=== PATIENT | male | born 1965 | race Caucasian/White ===

== ENCOUNTER 2019-05-16 18:48 | Observation (INO) ==
--- OUTSIDE RECORDS SUMMARY | 2019-05-16 18:50 | External Medical Summary | Continuity of Care Document ---
:1965 Author Name Paula Elliott Address Unavailable Unavailable , Care Team Providers Name Role Phone Melissa Elliott Unavailable [email or web address] [place], [place] PCP, NO Unavailable Unavailable Unavailable Unavailable Unavailable Assessments Assessed Problems:Bilateral inguinal hernia Problems Bilateral inguinal hernia (550.92) (K40.20) Allergies and Adverse Reactions No Known Drug Allergies (Allergy) Medications No Reported Medications Refills: 0 Procedures Procedures not documented Immunizations Immunizations not documented Family History Unknown Family Member Family history of Diabetes Mellitus (V18.0) Status: Active Comments: Family History Family history of Cancer Status: Active Comments: Famil y History Social History - Smoking Status Never smoker Interventions Discussion/SummaryPost-operative inguinal herniorrhaphy. The patient is doing well, no problems reported and the patient is satisfied. We discussed resumption of normal activities/return to work type of issues. Follow up will be prn. Plan of Treatment Planned Observations Planned Goals not documented Results No Known Results Results not documented Encounters Appointment; Dione Torres M.D. 29-Apr-2014 10:20 Encounter Diagnosis: Problem not documented
[2019-05-16] MEDS ORDERED: SODIUM CHLORIDE 0.9% 1000ML 1,000 ML IV ONE (19:11)
[2019-05-16] MEDS ORDERED: ONDANSETRON INJ 2 MG/ML 2 ML VIAL IV STA (19:13)
[2019-05-16] MEDS ORDERED: MoRPHine SULFATE 4 MG/ML 1 ML CARP\\VIAL IV STA (19:13)
[2019-05-16] MEDS ORDERED: DiphenhydrAMINE HCL 50 MG/ML VIAL IV STA (19:15)
[2019-05-16] MEDS ORDERED: ACETAMINOPHEN 1,000 MG/100 ML VIAL IV STA (19:15)
[2019-05-16 19:38] LABS: Basophils # (auto) 0.02 K/uL (0-0.2); Basophils % (auto) 0.3 %; Eosinophils # (auto) 0.41 K/uL (0-0.5); Eosinophils % (auto) 5.5 %; Hematocrit (blood only) 38.4 % (42-52); Hemoglobin 13.1 g/dL (14.0-18.0); Immature Granulocytes # (auto) 0.02 K/uL (0.00-0.02); Immature Granulocytes % (auto) 0.3 %; Lymphocytes # (auto) 2.04 K/uL (1.2-3.4); Lymphocytes % (auto) 27.4 %; Mean Corpuscular Hgb Conc 34.1 g/dL (32-36); Mean Corpuscular Volume 95.5 fL (80-100); Mean Platelet Volume 9.2 fL (7.4-10.4); Monocytes # (auto) 0.95 K/uL (0.11-0.59); Monocytes % (auto) 12.8 %; Neutrophils % (auto) 53.7 %; Platelet Count 210 K/uL (130-400); RDW Coefficient of Variation 12.8 % (11.5-14.5); RDW Standard Deviation 45.1 fL (36.4-46.3); Red Blood Count 4.02 M/uL (4.7-6.1); White Blood Count 7.44 K/uL (4.8-10.8)
--- NOTE | 2019-05-16 19:46 | Emergency Department Note ---
Entered by Autumn Leblanc acting as a scribe for History of Present Illness General Chief complaint: Abdominal Pain Stated complaint: FALLS, ABDOMINAL PAIN- HERNIA Time Seen by Provider: 05/16/19 19:05 Source: patient and family () History of Present Illness Onset (ago): month(s) 1 Location: abdomen (central ) Pain Consistency: + other (worsening ) Maximum Pain Intensity: 7 Current Pain Intensity: 7 Quality: + burning Associated symptoms: + nausea/vomiting (positive nausea; negative vomiting ) and + other (negative urinary symptoms ) Treatments prior to arrival: NSAID (Ibuprofen) The patient is a 54 year old male who presents to the Emergency Room with complaints of worsening central abdominal pain that began about one month prior to arrival. The patient describes this pain as burning, and rates it at a 7/10. The patient states that he previously had a laparoscopic surgery to fix his hernia several years ago, and states that about 3 months ago his hernia came back out. The patient states that his pain began about one month ago, and states that it has been worsening since this time. The patient's states that the patient was seen at [facility] last night where the doctor was able to reduce the hernia. The patient states that before he got home from [facility], the hernia came back out. The patient's states that tonight the patient fell, and states that the patient was unable to get up after the fall due to his pain. The patient states that during this time he has been nauseous, but denies vomiting. He denies urinary symptoms. The patient states that he has been taking Ibuprofen for his symptoms. Home Medications Home Medications Medication Instructions Recorded Confirmed Type diphenhydramine HCl [Benadryl] 25 - 50 mg PO DAILY PRN 05/16/19 05/16/19 History ibuprofen 400 mg PO TID PRN 05/16/19 05/16/19 History multivitamin 1 tab PO DAILY 05/16/19 05/16/19 History tramadol [Ultram] 50 - 100 mg PO Q4H PRN #15 tab 05/17/19 Rx Allergies Allergy/AdvReac Type Severity Reaction Status Date / Time oxycodone [From Percocet] Allergy Rash/itchy Verified 05/16/19 20:20 Past Med/Surg History Medical History Bilateral inguinal hernia (Acute) Bilateral inguinal hernia (Acute) Alcoholism Tobacco abuse Surgical History History of hernia repair Social History Preferred Language: Lao Communication Ability: Effective Costing Manager Required: No Beliefs That Will Affect Care: None Current Living Situation: Spouse and Family Other Information That Helps Us Care for You: No Feels Safe at Home: Yes Safety Concerns: Feels Safe At This Time Smoking Status: Unknown if ever smoked Hx Alcohol Use: Yes Alcohol type: beer Hx Substance Use: No Review of Systems See HPI for pertinent positives & negatives. and A total of 10 systems reviewed and were otherwise negative Physical Exam Vital Signs Vital Signs - 24 hr 05/16/19 19:02 05/16/19 20:02 05/16/19 20:26 Temperature 36.6 C Temperature Source Oral Sepsis Recent Fever Within 48 Hours No Sepsis Action Taken by Nursing No Action Required Pulse Rate 96 H Pulse Rate [Apical] Pulse Rate [Right] 85 80 Pulse Rhythm Regular Pulse Rhythm [Apical] Pulse Strength Normal Respiratory Rate 20 16 16 Respiratory Effort / Characteristics Non-Labored Spontaneous Respiratory Depth Normal Respiratory Pattern Regular Blood Pressure 122/82 Blood Pressure [Left Arm] Blood Pressure [Right Arm] 127/78 132/90 Blood Pressure Mean 95 Blood Pressure Mean [Left Arm] Blood Pressure Mean [Right Arm] 94 104 Blood Pressure Position Sitting Blood Pressure Position [Left Arm] Pulse Oximetry 95 97 96 Oxygen Delivery Method Room Air Room Air Room Air Oxygen Flow Rate 05/16/19 20:39 05/16/19 22:38 Temperature 36.1 C L Temperature Source Temporal Artery Scan Sepsis Recent Fever Within 48 Hours Sepsis Action Taken by Nursing Pulse Rate Pulse Rate [Apical] 101 H Pulse Rate [Right] Pulse Rhythm Pulse Rhythm [Apical] Regular Pulse Strength Respiratory Rate 16 Respiratory Effort / Characteristics Non-Labored Respiratory Depth Normal Respiratory Pattern Regular Blood Pressure Blood Pressure [Left Arm] 143/97 H Blood Pressure [Right Arm] Blood Pressure Mean Blood Pressure Mean [Left Arm] 112 Blood Pressure Mean [Right Arm] Blood Pressure Position Blood Pressure Position [Left Arm] Semi-fowlers Pulse Oximetry 97 Oxygen Delivery Method Room Air Oxymask Oxygen Flow Rate 7 GENERAL: Patient is in no acute distress. HEENT: No acute trauma, normocephalic atraumatic, mucous membranes moist, no nasal congestion, no scleral icterus. NECK: No stridor, no adenopathy, no meningismus, trachea is midline. LUNGS: Clear to auscultation bilaterally, no wheeze, no rhonchi, breath sounds equal. HEART: Without murmurs gallops or rubs, regular rate and rhythm. ABDOMEN: Soft, nontender, bowel sounds positive, no hernias, no peritonitis. GROIN: There is a fairly large, firm, left inguinal hernia that is quite tender to touch and is currently not reducible. EXTREMITIES: No cyanosis or edema, full range of motion of all the joints without pain or difficulty, no signs for acute trauma. NEUROLOGIC: Oriented x 3, no acute motor or sensory deficits, no focal weakness. SKIN: No rash, no jaundice, no diaphoresis. Course 190: Past medical records reviewed. The patient was evaluated in room B5. A complete history and physical exam was performed. 1920: I discussed the case with Dr. Sahu who states that he will come evaluate the patient. 1956: I discussed the case with Dr. Sahu who recommended ordering an ECG and cancelling the CAT scan. 2012: I updated the patient on the treatment plan. He is currently getting an ECG. 2017: I discussed the case with Dr. Sahu who states that he will further evaluate the patient. Consultations Consultation #1: I discussed the case with Dr. Sahu who states that he will come evaluate the patient. Time: 19:21 Consultation #2: I discussed the case with Dr. Sahu who recommended ordering an ECG and cancelling the CAT scan. Time: 19:57 Consultation #3: I discussed the case with Dr. Sahu who states that he will further evaluate the patient. Time: 20:17 Administered Medications Discontinued Medications Bacitracin (Bacitracin) Confirm Administered Dose 50,000 units .ROUTE .STK-MED ONE Stop: 05/16/19 20:40 Last Admin: 05/16/19 23:26 Dose: Not Given Documented by: [id number] Bupivacaine HCl (Marcaine 0.5% Mpf) Confirm Administered Dose 30 ml .ROUTE .STK- MED ONE Stop: 05/16/19 20:39 Last Admin: 05/16/19 21:21 Dose: 9 ml Documented by: [id number] Diphenhydramine HCl (Benadryl) 12.5 mg IV NOW STA Stop: 05/16/19 19:16 Last Admin: 05/16/19 20:04 Dose: 12.5 mg Documented by: [id number] Acetaminophen (Ofirmev) 1,000 mg in 100 mls @ 400 mls/hr IV NOW STA Stop: 05/16/19 19:29 Last Infusion: 05/16/19 20:25 Dose: 0 mls/hr Documented by: [id number] Admin: 05/16/19 20:04 Dose: 400 mls/hr Documented by: [id number] Sodium Chloride (Nss 1000ml) 1,000 mls @ 999 mls/hr IV .Q1H1M ONE Stop: 05/16/19 20:11 Last Infusion: 05/16/19 23:26 Dose: 0 mls/hr Documented by: [id number] Admin: 05/16/19 20:05 Dose: 999 mls/hr Documented by: [id number] Cefazolin Sodium (Ancef 2000mg) 2,000 mg in 15 mls @ 3.75 mls/min IV PREOP ONE Stop: 05/16/19 22:37 Last Admin: 05/16/19 21:12 Dose: 3.75 mls/min Documented by: [id number] Lactated Ringer's (Lr) 1,000 mls @ 50 mls/hr IV .Q20H YUVAL Stop: 06/15/19 23:23 Last Infusion: 05/17/19 08:52 Dose: 0 mls/hr Documented by: [id number] Admin: 05/16/19 23:36 Dose: 50 mls/hr Documented by: [id number] Morphine Sulfate (Morphine Sulfate) 4 mg IV NOW STA Stop: 05/16/19 19:14 Last Admin: 05/16/19 20:04 Dose: 4 mg Documented by: [id number] Ondansetron HCl (Zofran) 4 mg IV NOW STA Stop: 05/16/19 19:14 Last Admin: 05/16/19 20:04 Dose: 4 mg Documented by: [id number] Medical Decision Making Differential Diagnosis Differential diagnoses include incarcerated hernia, strangulated hernia, bowel obstruction, dehydration, diverticulitis, pancreatitis, and others were considered. Medical Records Attestation: I reviewed the patient's medical records. Home Medications Current Medication List: was personally reviewed by me Laboratory Data Attestation: I reviewed the patient's lab results. Result diagrams: 05/16/19 19:28 05/16/19 19:28 Lab Results 05/16/19 05/16/19 05/16/19 Range/Units 19:28 19:28 19:28 WBC 7.44 (4.8-10.8) K/uL RBC 4.02 L (4.7-6.1) M/uL Hgb 13.1 L (14.0-18.0) g/dL Hct 38.4 L (42-52) % MCV 95.5 (80-100) fL MCH 32.6 (25-34) pg MCHC 34.1 (32-36) g/dL RDW Std Deviation 45.1 (36.4-46.3) fL RDW Coeff of Jin 12.8 (11.5-14.5) % Plt Count 210 (130-400) K/uL MPV 9.2 (7.4-10.4) fL Immature Gran % (Auto) 0.3 % Neut % (Auto) 53.7 % Lymph % (Auto) 27.4 % Nicol[place] % (Auto) 12.8 % Eos % (Auto) 5.5 % Baso % (Auto) 0.3 % Immature Gran # (Auto) 0.02 (0.00-0.02) K/uL Neut # (Auto) 4.00 (1.4-6.5) K/uL Lymph # (Auto) 2.04 (1.2-3.4) K/uL [place] # (Auto) 0.95 H (0.11-0.59) K/uL Eos # (Auto) 0.41 (0-0.5) K/uL Baso # (Auto) 0.02 (0-0.2) K/uL PT 10.2 (9.0-12.0) Seconds INR 1.0 (0.9-1.1) APTT 27.9 (21.0-31.0) Seconds PTT Ratio 1.0 Sodium 137 (136-145) mmol/L Potassium 3.8 (3.5-5.1) mmol/L Chloride 103 (98-107) mmol/L Carbon Dioxide 22 (21-32) mmol/L Anion Gap 12.0 H (3-11) BUN 12 (7-18) mg/dl Creatinine 0.77 (0.6-1.4) mg/dl Est Cr Clr Drug Dosing 102.2 ml/min Est GFR ( Amer) 120.9 Est GFR (Non-Af Amer) 104.3 BUN/Creatinine Ratio 15.0 (10-20) Glucose 93 (70-99) mg/dl Calcium 8.9 (8.5-10.1) mg/dl Total Bilirubin 0.3 (0.2-1) mg/dl AST 20 (15-37) U/L ALT 25 (12-78) U/L Alkaline Phosphatase 90 (45-117) U/L Total Protein 7.3 (6.4-8.2) gm/dl Albumin 3.7 (3.4-5.0) gm/dl Globulin 3.6 (2.5-4.0) gm/dl Albumin/Globulin Ratio 1.0 (0.9-2) ECG Data Attestation: I personally reviewed and interpreted this ECG as follows: Indication: abdominal pain Rate (beats per minute): 87 Rhythm: sinus rhythm Findings: + other (potential old septal infarct ) and + 1st degree AV block; no PVC and no ST elevation Blood Pressure Blood Pressure Findings: Normal blood pressure MDM Narrative There is no leukocytosis or concerning anemia. No coagulopathy. No significant electrolyte abnormality or kidney failure. No elevation to the liver enzymes. EKG showed a sinus rhythm, no acute ischemia. On exam, the patient appeared to have an incarcerated left inguinal hernia. The patient was made n.p.o. He received IV saline for hydration. He was given IV morphine for pain, IV Zofran for nausea. He received IV Tylenol for pain, IV Benadryl to prevent itching from his morphine. I did contact general surgery. They arrived at bedside and have decided to take the patient to the operating room for this incarcerated hernia. Patient is currently resting comfortably. He is aware of all his results. Impression & Plan Incarcerated left inguinal hernia, Left groin pain Discharge Plan Visit Data *Final* Discharge Date/Time: 05/16/19 20:29 Chief Complaint: Abdominal Pain Stated Complaint: FALLS, ABDOMINAL PAIN- HERNIA ED Provider: Cesar Power Discharge Problem: Incarcerated left inguinal hernia, Left groin pain Patient Disposition: Still a Patient Discharge Instructions Interventions: ED Discharge Assessment Last Done: 05/16/19 20:29 The scribe's documentation has been prepared under my direction and personally reviewed by me in its entirety. I confirm that the note above accurately reflects all work, treatment, procedures, and medical decision making performed by me.
[2019-05-16 19:49] LABS: Partial Thromboplastin Time 27.9 Seconds (21.0-31.0); Prothrombin Time 10.2 Seconds (9.0-12.0)
[2019-05-16 19:54] LABS: Albumin Level 3.7 gm/dl (3.4-5.0); Calcium 8.9 mg/dl (8.5-10.1); Creatinine Clr Calc Pharmacy 102.2 ml/min; Est GFR (African American) 120.9; Est GFR (Non-African American) 104.3; Potassium 3.8 mmol/L (3.5-5.1)
[2019-05-16 19:57] LABS: Bilirubin,Total 0.3 mg/dl (0.2-1); Globulin 3.6 gm/dl (2.5-4.0); Total Protein 7.3 gm/dl (6.4-8.2)
--- NOTE | 2019-05-16 20:20 | History & Physical Report ---
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 had bilateral laparoscopic robotic inguinal hernia repair 4 years ago last 3 or 4 months noticed a bulge in the left inguinal area that he was able to push back in without any difficulty except last evening he was unable to reduce it went to [facility] room where they reduced it with some difficulty told him to find a surgeon to fix it on his way home the hernia pretty much came back and gentleman is very stoic went to work this morning and about noontime having some more discomfort decided to have a [employer] and 2 beers at approximately 2:00 and then came down here to the emergency room where the hernia was evaluated and unable to be reduced After the first reduction last evening he is experiencing some burning pain above the hernia in his lower abdomen he denies any changes in bowel habits and no nausea Primary Care Provider: NO PCP Allergies Allergy/AdvReac Type Severity Reaction Status Date / Time oxycodone [From Percocet] Allergy Rash/itchy Verified 05/16/19 20:20 Past Med/Surg History Medical History Bilateral inguinal hernia (Acute) Bilateral inguinal hernia (Acute) Social History Preferred Language: Macedonian Feels Safe at Home: Yes Smoking Status: Current every day smoker Review of Systems Review of Systems: All the systems is pretty much remarkable denies any cardiac pulmonary GI symptoms or musculoskeletal difficulties Physical Exam Physical Exam: Presently the gentleman is alert no distress the family's at bedside has normocephalic eyes sclera nonicteric no cervical lymphadenopathy lungs clear heart normal sinus rhythm abdomen soft not distended nontender right inguinal area no recurrent hernias testes normal left inguinal area hard to reduce scrotal hernia there is no redness or cellulitis Results & Data Vital Signs (Past 12 Hours) Vital Signs Temp Pulse Pulse Resp BP BP Pulse Ox 05/16/19 20:02 85 16 127/78 97 05/16/19 19:02 36.6 C 96 H 20 122/82 95 Vitals noted EKG is pending
[2019-05-16] MEDS ORDERED: BUPIVACAINE 0.5 % 5 MG/1 ML MPF 30ML VIAL ONE (20:38)
[2019-05-16] MEDS ORDERED: BACITRACIN INJ 50,000 UNIT VIAL ONE (20:39)
[2019-05-16] MEDS ORDERED: LABETALOL HCL IV 5 MG/ML 20ML IV PRN (20:44)
[2019-05-16] MEDS ORDERED: MEPERIDINE HCL 25 MG/ML CARP IV PRN (20:44)
[2019-05-16] MEDS ORDERED: PHENYLEPHRINE 100MCG/ML 5ML SYR IV PRN (20:44)
[2019-05-16] MEDS ORDERED: fentaNYL citrate 100 MCG/2 ML VIAL IV PRN (20:44)
[2019-05-16] MEDS ORDERED: ePHEDrine sulfate 50 MG/ML AMP IV PRN (20:44)
[2019-05-16] MEDS ORDERED: ATROPINE SULFATE 0.1 MG/ML 10ML SYR IV PRN (20:44)
[2019-05-16] MEDS ORDERED: ONDANSETRON INJ 2 MG/ML 2 ML VIAL IV PRN ×2 (20:44→23:24)
--- NOTE | 2019-05-16 20:46 | Anesthesiology Consultation ---
Date of Service May 16, 2019 The patient does not see a primary doctor according to his family. Assessment & Plan (1) Encounter for pre-operative examination: Chart Review Chart Review: Acceptable Risk for Surgery and Patient NOT seen in Pre Admission Testing Consults Requested none History Surgery Operation Date: 05/16/19 21:00 Proposed Procedures p Open Left Inguinal Hernia Repair - Nakul Scales MD Height/Weight Height: 5 ft 10 in Weight: 64.4 kg Allergies Allergy/AdvReac Type Severity Reaction Status Date / Time oxycodone [From Percocet] Allergy Rash/itchy Verified 05/16/19 20:20 Medications Home Medications Medication Instructions Recorded Confirmed Last Taken diphenhydramine HCl [Benadryl] 25 - 50 mg PO DAILY PRN 05/16/19 05/16/19 Unknown ibuprofen 400 mg PO TID PRN 05/16/19 05/16/19 Unknown multivitamin 1 tab PO DAILY 05/16/19 05/16/19 Unknown NPO Date Last Intake of Fluids: 05/16/19 Time Last Intake of Fluids: 14:00 Last Intake of Fluids Comment: Beer Date Last Intake of Solids: 05/16/19 Time Last Intake of Solids: 14:00 Last Intake of Solids Comment: [place] Past Medical History Medical History Bilateral inguinal hernia (Acute) Bilateral inguinal hernia (Acute) Alcoholism Tobacco abuse Past Surgical History Surgical History History of hernia repair Social History Smoking Status: Unknown if ever smoked Do You Dip or Chew Tobacco: Yes (1 can every 3-4 days) Hx Alcohol Use: Yes Alcohol type: beer alcohol intake frequency: 3 or more drinks per day Alcohol Intake Frequency Comment: ~ 6 beers/day (12 oz beers) Hx Substance Use: No Physical Exam Vital Signs Last Vital Signs Temp 36.6 C 05/16/19 19:02 Pulse 80 05/16/19 20:26 Resp 16 05/16/19 20:26 BP 132/90 05/16/19 20:26 Pulse Ox 96 05/16/19 20:26 Testing Laboratory Results 05/16/19 19:28 05/16/19 19:28 PT 10.2 Seconds (9.0-12.0) 05/16/19 19:28 INR 1.0 (0.9-1.1) 05/16/19 19:28 APTT 27.9 Seconds (21.0-31.0) 05/16/19 19:28 Electrocardiogram Date: 05/16/19 SR with 1st degree AV block, rate 87, septal infarct age undetermined, possible L atrial enlargement
[2019-05-16] MEDS ORDERED: MIDAZOLAM HCL 1 MG/ML 2ML VIAL ONE (20:55)
[2019-05-16] MEDS ORDERED: fentaNYL citrate 100 MCG/2 ML VIAL ONE (20:55)
[2019-05-16] MEDS ORDERED: PROPOFOL IV EMULSION 10 MG/ML 20 ML VIAL IV ONE (21:28)
[2019-05-16] MEDS ORDERED: CEFAZOLIN 250 MG/ML 1 GM VIAL ONE (21:29)
[2019-05-16] MEDS ORDERED: GLYCOPYRROLATE 0.2 MG/ML VIAL ONE (21:29)
[2019-05-16] MEDS ORDERED: LIDOCAINE HCL 2% 2 ML VIAL/AMP(20MG/ML) INFIL ONE (21:29)
[2019-05-16] MEDS ORDERED: ROCURONIUM BROMIDE 10 MG/ML 5 ML VIAL ONE (21:29)
[2019-05-16] MEDS ORDERED: DEXAMETHASONE SOD INJ 4 MG/ML VIAL ONE (21:29)
[2019-05-16] MEDS ORDERED: SUCCINYLCHOLINE CHLORIDE 20 MG/ML 10 ML VIAL ONE (21:29)
[2019-05-16] MEDS ORDERED: NEOSTIGMINE METHYLSULFATE 5 MG/5 ML SYR ONE (21:29)
[2019-05-16] MEDS ORDERED: ONDANSETRON INJ 2 MG/ML 2 ML VIAL ONE (21:29)
[2019-05-16] MEDS ORDERED: KETOROLAC 30 MG/ML VIAL ONE (22:19)
--- NOTE | 2019-05-16 22:24 | Post Operative Brief Note ---
Immediate Post Op Note v1 Date of Surgery May 16, 2019 Pre & Post Diagnosis Operation Date: 05/16/19 21:00 Pre-Op Diagnosis: Incarcerated left inguinal hernia Post-Op Diagnosis: Incarcerated left inguinal hernia Procedure Operation Date: 05/16/19 21:00 Actual Procedures p Open Incarcerated Left Inguinal Hernia Repair with Mesh(Left) - Nakul Scales MD Surgeon Nakul Scales MD Business Development Agent 0 Estimated Blood Loss 10 Findings Consistent with Post-Op Diagnosis
[2019-05-16] MEDS ORDERED: CEFAZOLIN 2000MG 2,000 MG/15 ML SYR IV ONE (22:34)
[2019-05-16] MEDS ORDERED: TRAMADOL HCL 50 MG TABLET PO PRN (22:41)
--- NOTE | 2019-05-16 22:55 | Operative Report ---
Post Operative Report Pre & Post Diagnosis Operation Date: 05/16/19 21:00 Pre-Op Diagnosis: Incarcerated left inguinal hernia Post-Op Diagnosis: Incarcerated left inguinal hernia Procedure Operation Date: 05/16/19 21:00 Actual Procedures p Open Incarcerated Left Inguinal Hernia Repair with Mesh(Left) - Nakul Scales MD The patient was brought into the operating theater supine position left lower quadrant with shaft prepped Betadine scrub and solution properly trach general endotracheal anesthesia systemic antibiotics given a timeout was had patient was identified 0.5% Marcaine with epi was used to infiltrate 2 fingerbreadths medial to the anterior superior iliac crest incision was made parallel to the inguinal ligament approximately 3 inches long deepened to subcutaneous tissue onto the external fascia wheat [place] was inserted dissection was carried out to the external ring were incarcerated tissue was appreciated more local was used underneath the external fascia was opened along the course of its fibers opening to the external ring significant amount of indurated tissue was there along the cord which was elevated over a [place] drain significant scarring was onto the floor probably from previous repair that he had had laparoscopically once we had elevated the cord and its structures over a [place] drain we started dissection were able to identify the cord retracted laterally and her dissection of the internal hernia was quite significant once we had identified it was found the patient had a sliding component of the sigmoid colon we basically did not reduce resect any hernial sac which is closed with chromic suture and returned to enter the internal ring internal ring was then closed with 3-0 silk sutures to snug it up. This point the floor itself little bit weak but we were able then to place a few 3-0 silk sutures to approximate the direct area to just transversalis fascia then a sheet of Marlex mesh was brought up onto the field cut appropriately sutured onto the symphysis pubis conjoined tendon superiorly shelving portion of the inguinal ligament inferiorly reconstructed around the cord may not make it too tight. Once this been performed we then closed the cord and it back I did underneath the external fascia with interrupted 3-0 silk suture 2-0 Dexon subcutaneous tory for skin edges dressing was applied proced ure was tolerated well by the patient estimated blood loss approximately 10 cc thank you Surgeon Nakul Scales MD Log Rider 0 Estimated Blood Loss 10 Findings Consistent with Post-Op Diagnosis Specimens none Description of Procedure merda I attest to the content of the Intraoperative Record and any orders documented therein. Any exceptions are noted below.
--- NOTE | 2019-05-16 22:56 | Anesthesiology Progress Note ---
Date of Service May 16, 2019 Anesthesia Post Procedure Vital Signs Vital Signs: Temp Pulse Pulse Pulse Resp BP BP 05/16/19 22:45 70 16 120/65 05/16/19 22:38 36.1 C L 101 H 16 143/97 H 05/16/19 20:26 80 16 05/16/19 20:02 85 16 05/16/19 19:02 36.6 C 96 H 20 122/82 BP Pulse Ox 05/16/19 22:45 100 05/16/19 22:38 97 05/16/19 20:26 132/90 96 05/16/19 20:02 127/78 97 05/16/19 19:02 95 Pain Intensity Abdomen: Pain Intensity: 3 Transfer of Care Handoff Completed per policy Notes Mental Status: alert / awake / arousable Patient Amnestic to Procedure: Yes Nausea / Vomiting: adequately controlled Pain: adequately controlled Airway Patency, RR, SpO2: stable & adequate BP & HR: stable & adequate Hydration State: stable & adequate Anesthetic Complications: no major complications apparent and Pt Satisfied with anesthetic care
[2019-05-16] MEDS ORDERED: IBUPROFEN 200 MG TAB PO PRN (23:24)
[2019-05-16] MEDS ORDERED: LACTATED RINGER'S 1,000 ML IV SCH (23:24)
[2019-05-17 06:28] VITALS: O2SAT 95
[2019-05-17 07:48] VITALS: BP 126/74; TEMP 98.8
--- NOTE | 2019-05-17 08:08 | Surgery Progress Note ---
Date of Service May 17, 2019 Assessment & Plan (1) Incarcerated left inguinal hernia: POD 1 repair inc hernia see with Dr. Yordy todd for d/c Subjective no complaints, ready to go home Physical Exam Gastrointestinal (Abdomen): Inspection/Auscultation: + abdominal surgical incision (clean, dry) Percussion/Palpation: abdomen soft Results & Data Vital Signs (Past 12 Hours) Vital Signs Temp Pulse Pulse Pulse Pulse Resp BP 05/17/19 07:25 37.1 C 79 18 05/17/19 06:20 36.7 C 86 14 05/17/19 02:24 37.0 C 97 H 14 05/17/19 01:24 36.7 C 96 H 14 05/17/19 00:36 36.6 C 84 16 05/17/19 00:10 36.6 C 90 14 05/16/19 23:27 37.1 C 79 18 120/75 05/16/19 23:05 36.6 C 80 16 124/82 05/16/19 22:55 70 16 129/84 05/16/19 22:45 70 16 120/65 05/16/19 22:38 36.1 C L 101 H 16 143/97 H 05/16/19 20:26 80 16 BP Pulse Ox 05/17/19 07:25 126/74 95 05/17/19 06:20 115/67 95 05/17/19 02:24 116/66 92 05/17/19 01:24 108/65 93 05/17/19 00:36 97/68 L 91 05/17/19 00:10 101/64 94 05/16/19 23:27 94 05/16/19 23:05 96 05/16/19 22:55 100 05/16/19 22:45 100 05/16/19 22:38 97 05/16/19 20:26 132/90 96
[2019-05-17 09:17] VITALS: PULSE 80
--- NOTE | 2019-05-17 09:36 | Discharge Summary ---
Date of Service May 17, 2019 Principal Diagnosis Incarcerated left inguinal hernia Discharge Exam Gastrointestinal (Abdomen) Inspection/Auscultation: + abdominal surgical incision (clean, dry) Percussion/Palpation: abdomen soft Discharge Data Allergies Allergy/AdvReac Type Severity Reaction Status Date / Time oxycodone [From Percocet] Allergy Rash/itchy Verified 05/16/19 20:20 Procedures Performed Operation Date: 05/16/19 21:00 Actual Procedures p Open Incarcerated Left Inguinal Hernia Repair with Mesh(Left) - Nakul Scales MD Hospital Course (1) Incarcerated left inguinal hernia: 54 y/o male presented to ED with complaint recurrent left inguinal hernia and severe abdominal pain. Evaluation was consistent with incarcerated left inguinal hernia and he was taken to the OR that evening for open repair. He was transferred to the surgical floor for overnight observation. In the morning he was tolerating regular diet and oral analgesics. He was stable for discharge. Total Time Total Time Spent Total Time Spent (In Minutes): 15 Discharge Plan Discharge Items Patient Disposition: Home - Self-Care Reason For Visit: POST OP Discharge Diagnosis: hernia repair Discharge Goals: Decrease discomfort Activity: Per 'Additional Instructions' section Lifting: No more than 10 pounds Bathing Comment: ok to shower Driving/Machine Use: Resume 3 days after discharge Non-emergency contact: Surgeon Call non-emergency contact if: you have any medication questions, your pain is not controlled, you have a fever, your temperature is above 101.5 and your wound has increased redness Follow-up/Referrals: Nakul Scales MD [Surgeon] - (Call to make an appt for 7-10 days) PCP,NO [Primary Care Provider] - Diet: Regular Addtl Provider Instructions: No work for 2-4 weeks, can discuss further at your appointment Prescriptions: New tramadol [Ultram] 50 mg tablet 50 - 100 mg PO Q4H PRN (Reason: pain) Qty: 15 RF: 0 Continued multivitamin Tablet 1 tab PO DAILY RF: 0 diphenhydramine HCl [Benadryl] 25 mg Capsule 25 - 50 mg PO DAILY PRN (Reason: allergies) RF: 0 ibuprofen 200 mg Tablet 400 mg PO TID PRN (Reason: Pain) RF: 0 Stand-Alone Forms: Call Back Authorization, [facility]/Other Patient Handouts: Surgery Prevent DVT After, Surgery Hernia Inguinal Groin Ch Discharge Orders: Discharge Order (Routine); Ordered 05/17/19 Ordered By: Marcus Carvalho Jr Admission Data Admit Date/Time: 05/16/19 22:40 Attending Provider: Nakul Scales Admit Provider: Nakul Scales Primary Care Provider: PCP,NO Service: Surgical Services Other Interventions: Discharge Summary Assessment (RN) Last Done: 05/17/19 09:16
--- NOTE | 2019-05-17 10:53 | Anesthesiology Progress Note ---
Date of Service May 17, 2019 Anesthesia Post Procedure Vital Signs Vital Signs: Temp Pulse Pulse Pulse Pulse Pulse Resp 05/17/19 09:16 37.1 C 80 84 79 18 05/17/19 07:25 37.1 C 79 18 05/17/19 06:20 36.7 C 86 14 05/17/19 02:24 37.0 C 97 H 14 05/17/19 01:24 36.7 C 96 H 14 05/17/19 00:36 36.6 C 84 16 05/17/19 00:10 36.6 C 90 14 05/16/19 23:27 37.1 C 79 18 05/16/19 23:05 36.6 C 80 16 05/16/19 22:55 70 16 05/16/19 22:45 70 16 05/16/19 22:38 36.1 C L 101 H 16 05/16/19 20:26 80 16 05/16/19 20:02 85 16 05/16/19 19:02 36.6 C 96 H 20 BP BP BP Pulse Ox 05/17/19 09:16 120/75 126/74 95 05/17/19 07:25 126/74 95 05/17/19 06:20 115/67 95 05/17/19 02:24 116/66 92 05/17/19 01:24 108/65 93 05/17/19 00:36 97/68 L 91 05/17/19 00:10 101/64 94 05/16/19 23:27 120/75 94 05/16/19 23:05 124/82 96 05/16/19 22:55 129/84 100 05/16/19 22:45 120/65 100 05/16/19 22:38 143/97 H 97 05/16/19 20:26 132/90 96 05/16/19 20:02 127/78 97 05/16/19 19:02 122/82 95 Pain Intensity Abdomen: Pain Intensity: 3 Left Groin: Pain Intensity: 4 Notes Mental Status: alert / awake / arousable and participated in evaluation Patient Amnestic to Procedure: Yes Nausea / Vomiting: adequately controlled Pain: adequately controlled Airway Patency, RR, SpO2: stable & adequate BP & HR: stable & adequate Hydration State: stable & adequate Anesthetic Complications: no major complications apparent and Pt Satisfied with anesthetic care
== END 2019-05-17 09:35 | disposition home or self-care (01) ==
LOC: ED 18:48 → ASU 20:29 → 3W 20:29